=== PATIENT | female | born 1985 | race African-American/Black ===

== ENCOUNTER 2019-09-21 01:56 | Emergency (ER) | payer BC ==
[~2019-09-21] VITALS: Ht 175.3 cm; Wt 68.7 kg
[2019-09-21 01:58] VITALS: BP 136/87
== END 2019-09-21 02:26 | disposition home or self-care (01) ==
LOC: ER 01:56
DX: S61.211A Laceration without foreign body of left index finger without damage to nail, initial encounter (principal); W26.0XXA Contact with knife, initial encounter; Y93.89 Activity, other specified; Y92.89 Other specified places as the place of occurrence of the external cause; Y99.8 Other external cause status
CPT/HCPCS: 12001; 99283